=== PATIENT | female | born 1970 | race African-American/Black ===

== ENCOUNTER 2018-12-13 05:49 | Day surgery (SDC) | payer OTHER ==
[2018-12-13] MEDS ORDERED: PROPOFOL 20 ML (08:47)
[2018-12-13] MEDS ORDERED: PHENYLephrine (100 MCG/ML) 5ML SYG (08:47)
== END 2018-12-13 12:14 | disposition home or self-care (01) ==
LOC: GIL 05:49
DX: K29.30 Chronic superficial gastritis without bleeding (principal); K44.9 Diaphragmatic hernia without obstruction or gangrene; F84.0 Autistic disorder; G40.909 Epilepsy, unspecified, not intractable, without status epilepticus; G80.9 Cerebral palsy, unspecified
CPT/HCPCS: 43239; 88305; 88312

== ENCOUNTER 2019-03-15 10:34 | Day surgery (SDC) | payer OTHER | END 2019-03-15 14:17 | disposition home or self-care (01) | LOC: GIL 10:34 | DX: K29.50 Unspecified chronic gastritis without bleeding (principal); K44.9 Diaphragmatic hernia without obstruction or gangrene; K20.8 Other esophagitis | CPT/HCPCS: 43239; 88305; 88312 ==